=== PATIENT | male | born 1955 | race Caucasian/White ===

== ENCOUNTER 2021-03-04 12:28 | Emergency (ER) | payer OTHER ==
[~2021-03-04] VITALS: Ht 185.4 cm; Wt 108.9 kg
[2021-03-04] MEDS ORDERED: TDAP [DIPH/PERTUSSIS/TET] 0.5 ML VIAL IM ONE ×2 (12:46→13:00)
[2021-03-04] MEDS ORDERED: BACITRACIN ZINC OINT PACKET 1 EA PACKET TP ONE ×2 (12:46→13:00)
[2021-03-04] MEDS ORDERED: LIDOCAINE 1% INJ 50 ML MDV IJ ONE ×2 (12:46→13:00)
--- NOTE | 2021-03-04 13:01 | NUR ---
patient came in to the er c/o left thumb lac. on room air, breathing evenly and unlabored. Kept comfortable, will continue to monitor accordingly.
[2021-03-04 14:40] VITALS: BP 126/62
[2021-03-04] MEDS ORDERED: CEPH500C2 PO (14:40)
[2021-03-04] MEDS ORDERED: OXYC-128 PO (14:40)
== END 2021-03-04 14:51 | disposition home or self-care (01) ==
LOC: ER 12:28
DX: S68.022A Partial traumatic metacarpophalangeal amputation of left thumb, initial encounter (principal); I10 Essential (primary) hypertension; E78.5 Hyperlipidemia, unspecified; E11.9 Type 2 diabetes mellitus without complications; W27.8XXA Contact with other nonpowered hand tool, initial encounter; Y93.89 Activity, other specified; Y92.89 Other specified places as the place of occurrence of the external cause; Y99.8 Other external cause status
CPT/HCPCS: 64450; 73130; 90471; 90715; 99284; A6403; J3490